=== PATIENT | male | born 1990 | race Caucasian/White ===

== ENCOUNTER 2021-11-03 12:20 | Emergency (ER) | payer OTHER, SELFPAY ==
[2021-11-03] MEDS ORDERED: Boostrix 0.5 ML (Tdap) VIAL ONE (13:46)
== END 2021-11-03 14:54 | disposition home or self-care (01) ==
LOC: ERS 12:20
DX: S61.012A Laceration without foreign body of left thumb without damage to nail, initial encounter (principal); F17.220 Nicotine dependence, chewing tobacco, uncomplicated; W01.0XXA Fall on same level from slipping, tripping and stumbling without subsequent striking against object, initial encounter
CPT/HCPCS: 12002; 90471; 90715